=== PATIENT | female | born 1985 | race Caucasian/White ===

== ENCOUNTER 2023-10-14 10:10 | Emergency (ER) | payer SELFPAY ==
[2023-10-14 10:40] LABS: Bilirubin Neg (Negative); Blood, Urine 10 (Negative); Clarity Clear (Clear); Glucose, Urine (Dipstick) Normal (Negative); Ketone, Urine 50 mg/dL (Negative); Leukocyte 25 (Negative); Nitrite Negative (Negative); Protein, Urine (Dipstick) Negative (Neg-Trace); Specific Gravity, Urine 1.015 (1.005-1.030); Urobilinogen Normal mg/dL (Less than 2)
[2023-10-14 11:11] LABS: Bacteria/HPF None Seen HPF (None Seen); CAUTI Indications for Culture Pelvic or flank pain; RBC/HPF 0-3 HPF (0-3); WBC/HPF 0-3 HPF (0-3)
[2023-10-14 11:13] LABS: Urine Culture Reflex No No
[2023-10-14 11:24] LABS: #Basophils 0.06 10x3/uL (0.0-0.2); #Monocytes 0.55 10x3/uL (0.0-1.1); #Neutrophils 6.86 10x3/uL (1.5-8.4); %Basophils 0.7 % (0.0-2.0); %Eosinophils 1.1 % (0.0-6.0); %Lymphocytes 16.1 % (18.0-47.0); %Monocytes 6.1 % (0.0-10.0); %Neutrophils 75.7 % (40.0-75.0); Hemoglobin 14.6 g/dL (12.0-15.5); Mean Corpuscular HGB CONC 34.8 g/dL (32.0-36.0); Mean Corpuscular Hemoglobin 30.5 pg (27.0-33.0); Mean Corpuscular Volume 87.7 fl (81.6-98.3); Mean Platelet Volume 9.4 fl (7.4-10.4); Platelet Count 233 10x3/uL (150-450); RBC Distribution Width 12.4 % (11.5-14.5); Red Blood Cell (RBC) Count 4.79 10x6/uL (3.90-5.03); White Blood Cell (WBC) Count 9.1 10x3/uL (3.5-10.5)
[2023-10-14 11:37] LABS: Anion Gap 14 mmol/L (10-20); BUN (Urea Nitrogen) 16 mg/dL (7.0-18.7); Calc. Creatinine Clearance 0 mL/min (70-130); Carbon Dioxide 18 mmol/L (22-29); Chloride 111 mmol/L (98-107); Estimated GFR 103; Glucose 78 mg/dL (70-105); Potassium 3.7 mmol/L (3.5-5.1); Sodium 139 mmol/L (136-145)
== END 2023-10-14 12:09 | disposition home or self-care (01) ==
LOC: CSHERS 10:10
DX: K57.92 Diverticulitis of intestine, part unspecified, without perforation or abscess without bleeding (principal)
CPT/HCPCS: 36415; 74176; 80048; 81001; 85025

== ENCOUNTER 2024-05-13 09:38 | Emergency (ER) | payer SELFPAY ==
[2024-05-13] MEDS ORDERED: Ondansetron ODT 4 MG TAB ONE (10:32)
[2024-05-13] MEDS ORDERED: Fioricet 325/50/40 mg Tablet PO SCH (10:45)
== END 2024-05-13 10:49 | disposition home or self-care (01) ==
LOC: CSHERS 09:38
DX: J06.9 Acute upper respiratory infection, unspecified (principal)
CPT/HCPCS: 87428; 99283; Q0162